=== PATIENT | female | born 1960 | race Caucasian/White ===

== ENCOUNTER 2022-04-22 18:25 | Emergency (ER) | payer OTHER, BC, SELFPAY ==
--- NOTE | ~2022-04-22 | XR_ITS ---
XR knee LT min 4V 04/22/2022 19:05 INDICATION: Left knee pain PROCEDURE: 5 views left knee COMPARISON: No prior studies for comparison. FINDINGS: Fracture, dislocation or subluxation is not identified. No significant joint effusion. The soft tissues appear within normal limits. No foreign bodies are identified. IMPRESSION: 1: NO ACUTE BONE OR JOINT ABNORMALITY IDENTIFIED. Reviewed, dictated and finalized at location A.
--- NOTE | ~2022-04-22 | XR_ITS ---
XR nasal bones min 3V 04/22/2022 19:06 Indication: Status post fall. Trauma to the nose. Procedure: 3 views of the nasal bones Comparison: No prior studies for comparison. Findings: No acute displaced nasal fracture. There is leftward nasal septal deviation. Orbits are sym metric. Mastoids are pneumatized. No air-fluid levels in the visualized paranasal sinuses. Impression: 1: No acute displaced nasal fracture. Reviewed, dictated and finalized at location A. Impression: 1: No acute displaced nasal fracture.
[2022-04-22 18:42] VITALS: BP 120/65; PULSE 70; RESP 16; TEMP 36.9; O2SAT 100
--- NOTE | 2022-04-22 18:52 | ED.GENADULT ---
HPI - General Adult General Chief complaint: Extremity Injury, Lower Stated complaint: Left knee injury Time Seen by Provider: 04/22/22 19:00 Source: patient, RN notes reviewed and old records reviewed Mode of arrival: ambulatory Limitations: no limitations History of Present Illness HPI narrative: 62-year-old female presents to [facility] care with complaints of slipping in the kitchen at a clients home today around 1400 today. She states that she fell forward onto hands and knees and hit nose on the floor. She reports that she delaney pain to the bridge of her nose and also pain to her her left knee. Patient has some bruising and minimal swelling to the left anterior medial knee. Patient denies any LOC or any other injury noted. MD complaint: bruising and discomfort left knee and pain to nose Onset (ago): hour(s) (at 1400 today) Treatments prior to arrival: none Related Data Home Medications Medication Instructions Recorded Confirmed No Home Medications 04/22/22 04/22/22 Allergies Allergy/AdvReac Type Severity Reaction Status Date / Time No Known Allergies Allergy Verified 04/22/22 18:52 Review of Systems Review of Systems: CONSTITUTIONAL: Denies fever, chills, or sweats. EYES: Denies visual changes, redness, or discharge. ENT: Denies rhinorrhea, congestion, sore throat, or otalgia. CARDIOVASCULAR: Denies chest pain, palpitations, or edema. RESPIRATORY: Denies cough or dyspnea. GASTROINTESTINAL: Denies abdominal pain, nausea, vomiting, or diarrhea. GENITOURINARY: Denies dysuria or hematuria. SKIN: Denies rash or itching. MUSCULOSKELETAL: Denies back pain, positive pain to her left anterior knee, or myalgia. NEUROLOGIC: Denies headache, numbness, or weakness. PSYCHIATRIC: Denies anxiety or depression. All systems reviewed & are unremarkable except as noted in HPI and below PMFSH Comments At time of signature, agree with nursing past medical, surgical, social and family history. There is no relevant family history pertinent to the presenting complaint Exam Narrative: GENERAL: Well-appearing, well-nourished, and in no acute distress. HEAD: Normocephalic, atraumatic.Pain to bridge of nose,no break in ski.n integrity or bruising noted EYES: PERRLA and EOMI. ENT: Nares clear, no rhinorrhea or epistaxis. Mucous membranes moist.TM's normal with good light reflex, throat pink with no exudates or lesions tonsils not swollen NECK: Supple.no lymphadenopathy CHEST: Clear to auscultation. No respiratory distresException noted to discomfort of left medial anterior knee with some bruising and minimal swell, Full ROM of left knee, circulation and sensation intact to left leg and foot. SKIN: Warm, dry, no rash. NEURO: No focal deficits. Alert and oriented x3 Course Course Level of Care: Express Care Visit Vital Signs Vital signs: Vital Signs Temperature 36.9 C 04/22/22 18:42 Pulse Rate 70 04/22/22 18:42 Respiratory Rate 16 04/22/22 18:42 Blood Pressure 120/65 04/22/22 18:42 Pulse Oximetry 100 04/22/22 18:42 Oxygen Delivery Room Air 04/22/22 18:42 Temperature 36.9 C 04/22/22 18:42 Pulse Rate 70 04/22/22 18:42 Respiratory Rate 16 04/22/22 18:42 Blood Pressure 120/65 04/22/22 18:42 Pulse Oximetry 100 04/22/22 18:42 Oxygen Delivery Room Air 04/22/22 18:42 Medical Decision Making Differential Diagnosis Differential Diagnosis: Nasal fracture, contusion to face, pain to left knee, joint effusion left knee, swelling left knee, injury left knee Vital Signs Vital Signs: Vital Signs Temperature 36.9 C 04/22/22 18:42 Pulse Rate 70 04/22/22 18:42 Respiratory Rate 16 04/22/22 18:42 Blood Pressure 120/65 04/22/22 18:42 Pulse Oximetry 100 04/22/22 18:42 Oxygen Delivery Room Air 04/22/22 18:42 Temperature 36.9 C 04/22/22 18:42 Pulse Rate 70 04/22/22 18:42 Respiratory Rate 16 04/22/22 18:42 Blood Pressure 120/65 04/22/22 18:42 Pulse Oximetry 100 04/22
== END 2022-04-22 19:48 | disposition home or self-care (01) ==
PROVIDERS: Emergency Provider Registered Nurse; PCP Internal Medicine
DX: M25.562 Pain in left knee (principal); S00.33XA Contusion of nose, initial encounter; W18.30XA Fall on same level, unspecified, initial encounter
CPT/HCPCS: 70160; 73564; 99214; G0463